=== PATIENT | male | born 1980 | race Hispanic/Latino ===

== ENCOUNTER → 2022-08-02 | Day surgery (SDC) | payer BC ==
[2022-07-29 16:14] LABS: BASOPHILS # (AUTO) 0.1 (0.0-0.1); BASOPHILS % 0.6 % (0.0-1.0); EOSINOPHILS # (AUTO) 0.1 (0.0-0.4); EOSINOPHILS % 1.1 % (0.0-6.0); HEMOGLOBIN 17.3 g/dL (14.0-18.0); LYMPHOCYTES # (AUTO) 3.8 (1.0-3.2); LYMPHOCYTES % 36.7 % (18.0-39.1); MEAN CORPUSCULAR HEMOGLOBIN 29.4 pg (28-32); MEAN CORPUSCULAR HGB CONC 34.6 g/dL (31-35); MONOCYTES # (AUTO) 0.7 (0.2-0.8); NEUTROPHILS # (AUTO) 5.6 (2.1-6.9); NEUTROPHILS % 53.9 % (38.7-80.0); PLATELET COUNT 293 x10e3/uL (140-360); RED BLOOD COUNT 5.88 x10e6/uL (4.3-5.7); RED CELL DISTRIBUTION WIDTH 13.1 % (11.7-14.4)
[2022-07-29 16:34] LABS: ANION GAP 16.6 mmol/L (8-16); CALCIUM 10.4 mg/dL (8.4-10.2); CREATININE, SERUM 1.21 mg/dL (0.72-1.25); POTASSIUM 4.6 mmol/L (3.5-5.1)
[~2022-08-02] MED LIST: ACETAMINOPHEN 1000 MG/100 ML 100 ML IV ONE; BUPIVACAINE 0.5%/EPI 30 ML SDV INJ ONE; DEXAMETHASONE SOD PHOS INJ 4 MG/ML SDV ONE; FENTANYL CITRATE/PF 100MCG/2 ML INJ ONE; KETOROLAC TROMETHAMINE 30 MG/ML VIAL ONE; LIDOCAINE HCL 2% LOCAL INJ 5 ML SDV VIAL INJ ONE; MIDAZOLAM HCL 2 MG/2 ML VIAL ONE; ONDANSETRON HCL INJ 2MG/ML 2ML 2 MG/ML VIAL ONE; POVIDONE IODINE 0.05% 0.05 % ML PO ONE; PROPOFOL IV EMULSION 10 MG/ML 20 ML VIAL ONE; ROCURONIUM BROMIDE 10 MG/ML 5ML VIAL IV ONE; ROPIVACAINE 0.5% 5 MG/ML 30 ML SDV ONE; SEVOFLURANE INHAL SOLN 250 ML PEN BTL ONE
[2022-08-02 12:44] VITALS: TEMP 97.9
[2022-08-02 14:25] VITALS: BP 119/82; PULSE 70; RESP 16; O2SAT 94
== END | disposition home or self-care (01) ==
LOC: OR 07:49
PROVIDERS: ATTEND Surgery
DX: K43.6 Other and unspecified ventral hernia with obstruction, without gangrene (principal); Z01.810 Encounter for preprocedural cardiovascular examination; Z01.812 Encounter for preprocedural laboratory examination
CPT/HCPCS: 36415; 49594; 80048; 85025; 88304; 93005; C1781; J0131; J1100; J1885; J2001; J2250; J2405; J2704; J2795; J3010

== ENCOUNTER 2024-02-05 13:22 | Emergency (ER) | payer BC ==
[~2024-02-05] VITALS: Ht 182.9 cm; Wt 115.7 kg
[2024-02-05] MEDS: TETANUS/DIPHTHERIA TOX ADULT 0.5 ML SYR IM ONE (13:46)
[2024-02-05] MEDS: LIDOCAINE 2% /EPINEPHRINE 20 ML SDV INJ ONE (13:47)
[2024-02-05] MEDS: NEOMYCIN/POLYMYX/BACITR OINT 0.9 GM PKT TOP ONE (15:43)
[2024-02-05 15:44] VITALS: PULSE 96; RESP 18; TEMP 98; O2SAT 98
== END 2024-02-05 15:46 | disposition home or self-care (01) ==
LOC: ER 13:27
DX: S01.81XA Laceration without foreign body of other part of head, initial encounter (principal); W22.8XXA Striking against or struck by other objects, initial encounter; Y92.89 Other specified places as the place of occurrence of the external cause
CPT/HCPCS: 12013; 90471; 90714; 99283; J2004

== ENCOUNTER 2024-02-12 14:08 | Emergency (ER) | payer BC ==
[~2024-02-12] VITALS: Ht 182.9 cm; Wt 115.7 kg
[2024-02-12 14:29] VITALS: PULSE 77; RESP 16; TEMP 97.5
[2024-02-12 16:23] VITALS: BP 145/72; PULSE 72; RESP 16; TEMP 97.5; O2SAT 98
== END 2024-02-12 16:19 | disposition home or self-care (01) ==
LOC: ER 15:58
DX: Z48.02 Encounter for removal of sutures (principal)
CPT/HCPCS: 99282